=== PATIENT | female | born 1970 | race Caucasian/White ===

== ENCOUNTER 2020-08-25 08:32 | Day surgery (SDC) | payer BC ==
[2020-08-25 08:34] LABS: Absolute Lymphocytes (CBC) 1.9 K/uL (0.7-4.9); Hematocrit 39.7 % (36.0-45.0); Lymphocytes % 34.8 % (15.3-44.8); MPV 10.5 fL (7.6-11.3); RBC Red Blood Cell Count 4.56 M/uL (3.86-4.86)
--- NOTE | 2020-08-25 08:49 | RAD REPORT ---
EXAM DESCRIPTION: Alee Bond (2 Views)08/25/2020 8:43 am CLINICAL HISTORY: Preop for abdominal abscess drainage COMPARISON: None FINDINGS: The lungs appear clear of acute infiltrate. The heart is normal size IMPRESSION: No acute abnormalities displayed
[2020-08-25] MEDS ORDERED: Ringers Lactate 1,000 ML IV ONE (08:54)
[2020-08-25] MEDS ORDERED: CEFAZOLIN/SWI 1gm 1 GM/10 ML SYR ONE (08:54)
[2020-08-25 08:56] LABS: Potassium 3.9 mmol/L (3.5-5.1)
[2020-08-25] MEDS ORDERED: MIDAZOLAM HCL 2 MG/2 ML INJ ONE (09:16)
[2020-08-25] MEDS ORDERED: propofoL 200 MG/20 ML VIAL IV ONE (09:35)
[2020-08-25] MEDS ORDERED: LIDOCAINE 1% MPF 5 ML VIAL ONE (09:35)
[2020-08-25] MEDS ORDERED: FENTANYL CITR 100 MCG/2 ML ONE (09:35)
[2020-08-25] MEDS ORDERED: KETOROLAC 30 MG/ML INJ ONE (09:47)
[2020-08-25] MEDS ORDERED: dexAMETHasone 10 MG/ML VIAL ONE (09:47)
--- NOTE | 2020-08-25 09:49 | P.BOP ---
Preoperative diagnosis: abdominal wall cellulitis, abscess Postoperative diagnosis: complex abscess Primary procedure: Incision and drainage of abdominal wall complex [id number] x 7 x 1.5 cm Specimen: culture. devitalized tissue Findings: as above Anesthesia: General Transferred to: Recovery Room Condition: Good
[2020-08-25] MEDS ORDERED: ONDANSETRON 4 MG/2 ML VIAL ONE (09:56)
[2020-08-25 10:01] VITALS: O2SAT 100
[2020-08-25 10:37] VITALS: BP 111/66; TEMP 97
[2020-08-25] MEDS ORDERED: CODEINE 30MG/APAP 300MG TAB ONE (11:12)
--- NOTE | 2020-08-25 12:45 | EKG ---
Test Date: 2020-08-25 Test Time: 07:12:18 Environmental Field Professional: REGINALD MEASUREMENT RESULTS: Intervals: Rate: 58 MN: 140 QRSD: 100 QT: 416 QTc: 408 [place]: P: 63 MN: 140 QRS: -14 T: 41 INTERPRETIVE STATEMENTS: Sinus bradycardia Incomplete right bundle branch block Borderline ECG No previous ECG available for comparison Electronically Signed On 08-25-20 12:45:15 CDT by Chivo Hutson
--- NOTE | 2020-09-06 22:12 | OP ---
Date of Procedure: 08/25/2020 Surgeon: Sumeet Moy MD Preoperative Diagnosis: Abdominal wall cellulitis and abscess. Postoperative Diagnosis: Complex abscess. Procedure: Incision and drainage of complex abdominal wall abscess, 15 x 7 x 1.5 cm. Specimen: Culture and devitalized tissue. Anesthesia: General plus local. Indication: This is the case of a lady who came with cellulitis, abdominal wall abscess, increasing in size, pain and discomfort. Benefits, alternatives, and risks of incision and drainage and debride ment of necrotic tissue fully explained to the patient, which include, but not limited to infection, bleeding, damage to adjacent structures, anesthesia complication, recurrence, VA, and even . Oscar fortune also understands that this may not relieve her symptoms. She might need more than one surgical int ervention. She will need wound care. Also, the doctor's recommendations to follow with antibiotics. She signed a consent. Procedure In Detail: The area of concern was marked by me and the patient in the holding room. The patient was brought to the operating room, placed in supine position. Anesthesia was done without co mplication. Abdominal area was prepped and draped in sterile fashion. Local anesthesia was applied followed by sharp incision of the skin over the area of the devitalized tissue. The devitalized tiss ue was removed, but this incision led us into an abscess, which was about 15 x 7 x 1.5 cm with locula tions goes medially and laterally. That were explored with the help of instruments. This tunnel was explored. Irrigation was done. Hemostasis was obtained. Devitalized tissue was removed with the h elp of 11 blade and then the area was packed with wet-to-dry dressing. The patient tolerated the pro cedure well. The patient was sent to Recovery in stable condition. Local anesthetic was applied bef ore closure. Discharge Summary: Diagnosis: Abdominal wall cellulitis and abscess. Procedure: Incision and drainage of abdominal wall complex abscess. Disposition: Home. Activity: As tolerated, no heavy lifting. Plan: Follow up in my office in 1 week. Call for appointment on [phone]. Wet-to-dry dressing and normal saline to that area daily. MOMO/PAUL Voice ID: [id number] Report ID: [id number]
== END 2020-08-25 11:20 | disposition home or self-care (01) ==
LOC: OR 08:32
PROVIDERS: ATTEND Surgery
PROC: 0J980ZZ Drainage of Abdomen Subcutaneous Tissue and Fascia, Open Approach (ICD-10-PCS; principal; 2020-08-25 09:45)
DX: L02.211 Cutaneous abscess of abdominal wall (principal); L03.311 Cellulitis of abdominal wall; K21.9 Gastro-esophageal reflux disease without esophagitis; E03.9 Hypothyroidism, unspecified; I48.91 Unspecified atrial fibrillation; F32.9 Major depressive disorder, single episode, unspecified; Z20.822 Contact with and (suspected) exposure to COVID-19
CPT/HCPCS: 10060; 93005; 87070; 85025; 80048; 36415; 87205; 84703; 88304; 87075; 87077; 87186; 71046; U0003; J2704; J2250; J3010; J1100; J0690; J7120; J2405